=== PATIENT | female | born 1975 | race Caucasian/White ===

== ENCOUNTER 2019-08-05 16:37 | Emergency (ER) | payer SELFPAY ==
[~2019-08-05] VITALS: Ht 165.1 cm; Wt 123.8 kg
[2019-08-05 16:47] VITALS: Ht 165.1 cm; Wt 123.8 kg
[2019-08-05 18:58] VITALS: BP 103/67
== END 2019-08-05 19:03 | disposition home or self-care (01) ==
LOC: ED 16:37
DX: J10.1 Influenza due to other identified influenza virus with other respiratory manifestations (principal)
CPT/HCPCS: 87804